=== PATIENT | female | born 1990 | race Asian ===

== ENCOUNTER 2022-08-03 10:00 | Emergency (ER) | payer OTHER ==
[2022-08-03 10:43] LABS: BASOPHILS % (AUTO) 0.3 %; EOSINOPHILS % (AUTO) 0.1 %; HCT - HEMATOCRIT 41.3 % (37.0-47.0); HGB - HEMOGLOBIN 13.1 g/dL (12.0-16.0); LYMPHOCYTES # (AUTO) 0.6 10^3/uL (1.5-3.5); LYMPHOCYTES % (AUTO) 6.4 %; MEAN CORPUSCULAR HEMOGLOBIN 28.1 pg (27.0-31.0); MEAN CORPUSCULAR HGB CONC 31.7 g/dL (32.0-36.0); MEAN CORPUSCULAR VOLUME 88.6 fL (81.0-99.0); MEAN PLATELET VOLUME 8.7 fL (7.9-10.8); MONOCYTES # (AUTO) 0.2 10^3/uL (0.0-1.0); MONOCYTES % (AUTO) 2.2 %; NEUTROPHILS # (AUTO) 8.2 10^3/uL (1.5-6.6); NEUTROPHILS % (AUTO) 90.7 %; PLT - PLATELET COUNT 291 10^3/uL (130-450); RED BLOOD COUNT 4.66 10^6/uL (4.20-5.40)
--- NOTE | 2022-08-03 10:44 | ED Physician Documentation ---
PD HPI CHEST PAIN - Stated complaint Stated Complaint: CHEST/BACK PAIN - Chief complaint Chief Complaint: Cardiac - History obtained from History obtained from: Patient - Additional information Additional information: 31-year-old woman with history of lupus on mycophenolate and hydroxychloroquine and related to lupus she has pulmonary hypertension on tadalafil and Ambrisentan and spironolactone. She was awoken this morning at 2 AM by sharp pain that is substernal and radiating to the upper back. It is worse with deep breathing. She noticed some mild facial puffiness yesterday not associated with pedal edema. She is short of breath since yesterday. She denies calf pain or history of DVT/PE. Review of Systems Ten Systems: 10 systems reviewed and negative Constitutional: denies: Fever, Chills, Fatigue Cardiac: denies: Palpitations, Pedal edema, Calf pain Respiratory: denies: Cough, Hemoptysis, Wheezing PD PAST MEDICAL HISTORY - Present Medications Home Medications: Ambulatory Orders Medication Instructions Recorded Confirmed Spironolactone [Aldactone] 12.5 mg PO DAILY 08/03/22 08/03/22 Tadalafil [Cialis] 40 mg PO DAILY 08/03/22 08/03/22 mycophenolate mofetiL [Cellcept] 500 mg PO BID 08/03/22 08/03/22 - Allergies Allergies/Adverse Reactions: Allergies Allergy/AdvReac Type Severity Reaction Status Date / Time acetaminophen [From Vicodin] Allergy Rash Verified 08/03/22 10:21 hydrocodone [From Vicodin] Allergy Rash Verified 08/03/22 10:21 PD ED PE NORMAL - Vitals Vital signs reviewed: Yes - General General: Alert and oriented X 3, No acute distress - HEENT HEENT: PERRL, EOMI, Other (No overt facial puffiness but the patient notices it. No JVD.) - Neck Neck: Supple, no meningeal sign, No bony TTP - Cardiac Cardiac: RRR, No murmur - Respiratory Respiratory: No respiratory distress, Clear bilaterally - Abdomen Abdomen: Soft, Non tender - Back Back: No CVA TTP, No spinal TTP - Derm Derm: Normal color, Warm and dry - Extremities Extremities: No edema, No calf tenderness / cord - Neuro Neuro: Alert and oriented X 3, Normal speech Results - Vitals Vitals: Vital Signs - 24 hr 08/03/22 08/03/22 08/03/22 10:16 11:21 11:33 Temperature 37.3 C Heart Rate 98 79 77 Respiratory 20 14 19 Rate Blood Pressure 121/81 H 118/77 O2 Saturation 98 98 100 08/03/22 08/03/22 08/03/22 12:00 12:30 13:30 Temperature Heart Rate 80 80 81 Respiratory 18 22 16 Rate Blood Pressure 114/80 117/9 L 117/79 O2 Saturation 98 98 99 Oxygen O2 Source Room air - EKG (time done) 1028 Rate: Rate (enter#) (72) Rhythm: NSR [place]: Normal Intervals: Normal [place] QRS: Normal Ischemia: Normal ST segments - Labs Labs: Laboratory Tests 08/03/22 08/03/22 08/03/22 10:33 10:33 10:33 WBC 9.0 RBC 4.66 Hgb 13.1 Hct 41.3 MCV 88.6 MCH 28.1 MCHC 31.7 L RDW 12.0 Plt Count 291 MPV 8.7 Neut # (Auto) 8.2 H Lymph # (Auto) 0.6 L [place] # (Auto) 0.2 Eos # (Auto) 0.0 Baso # (Auto) 0.0 Absolute Nucleated RBC 0.00 Nucleated RBC % 0.0 Sodium 137 Potassium 3.6 Chloride 101 Carbon Dioxide 27 Anion Gap 9.0 BUN 8 Creatinine 0.7 Estimated GFR (MDRD) 97 Glucose 108 H Calcium 9.5 Total Bilirubin 0.4 AST 18 ALT 10 Alkaline Phosphatase 46 Troponin I High Sens < 2.3 L B-Natriuretic Peptide Total Protein 8.4 H Albumin 4.6 Globulin 3.8 Albumin/Globulin Ratio 1.2 Lipase 33 Urine HCG, Qual 08/03/22 08/03/22 10:33 11:25 WBC RBC Hgb Hct MCV MCH MCHC RDW Plt Count MPV Neut # (Auto) Lymph # (Auto) [place] # (Auto) Eos # (Auto) Baso # (Auto) Absolute Nucleated RBC Nucleated RBC % Sodium Potassium Chloride Carbon Dioxide Anion Gap BUN Creatinine Estimated GFR (MDRD) Glucose Calcium Total Bilirubin AST ALT Alkaline Phosphatase Troponin I High Sens B-Natriuretic Peptide 6 Total Protein Albumin Globulin Albumin/Globulin Ratio Lipase Urine HCG, Qual NEGATIVE PD MEDICAL DECISION MAKING - ED course ED course: 31-year-old woman with pleuritic chest pain, no evidence of ACS, given her lupus and higher than average risk for thromboembolic disease CT PA was done with negative findings. By process of lamination this is consistent with pleurisy. Departure - Departure Disposition: 01 Home, Self Care Clinical Impression: Pleurisy Condition: Good Record reviewed to determine appropriate education?: Yes Instructions: ED Chest Pain Atypical Unkn Cause Comments: Thankfully there are no findings of active heart disease, blood clots, or congestive heart failure. By process of elimination the pain is most consistent with what is known as pleurisy for which you can take ibuprofen per package instructions. Return for new or worsening symptoms and follow-up with your primary physician, next available appointment. Discharge Date/Time: 08/03/22 13:39
[2022-08-03] MEDS ORDERED: iohexoL-300 100 ML VIAL ONE (10:55)
[2022-08-03 10:57] LABS: ALBUMIN 4.6 g/dL (3.2-5.5); ALBUMIN/GLOBULIN RATIO 1.2 (1.0-2.2); BILIRUBIN,TOTAL 0.4 mg/dL (0.2-1.0); CALCIUM 9.5 mg/dL (8.5-10.3); CREATININE 0.7 mg/dL (0.4-1.0); POTASSIUM 3.6 mmol/L (3.5-5.0); TOTAL PROTEIN 8.4 g/dL (6.7-8.2)
--- NOTE | 2022-08-03 11:14 | XRAY Report ---
PROCEDURE: Chest 1 View X-Ray INDICATIONS: Chest Pain TECHNIQUE: One view of the chest was acquired. COMPARISON: 04/26/2022 FINDINGS: Surgical changes and devices: Cholecystectomy clips are seen. Lungs and pleura: No pleural effusions or pneumothorax. Lungs are clear. Mediastinum: Mediastinal contours appear normal. Heart size is normal. Bones and chest wall: No suspicious bony lesions. Overlying soft tissues appear unremarkable. IMPRESSION: No acute cardiopulmonary process is seen. Reviewed by: Mark Martinez MD on 08/03/2022 10:12 AM [facility] Approved by: Mark Martinez MD on 08/03/2022 10:12 AM [facility] Station ID: [id number]
[2022-08-03 12:03] LABS: HCG UR QUAL NEGATIVE
[2022-08-03] MEDS ORDERED: iohexoL-300 100 ML VIAL IVP ONE (12:51)
--- NOTE | 2022-08-03 13:09 | CT Report ---
PROCEDURE: ANGIO CHEST W/WO INDICATIONS: chest - >back pain CONTRAST: 80ml omni 300 TECHNIQUE: After the administration of intravenous contrast, 2 mm axial images were acquired from the pulmonary apices to the posterior costophrenic angles during the arterial phase. In addition, 1 mm lung kernel and 5 mm soft tissue kernel reconstructions were performed. 3-dimensional coronal oblique maximum int ensity projection (MIP) reformats, 8 mm axial MIP, and 5 mm coronal and sagittal MPR reformats were t hen performed through the thorax. For radiation dose reduction, the following was used: automated exp osure control, adjustment of mA and/or kV according to patient size. COMPARISON: Correlation is made with the chest radiograph 09/02/2022. Prior chest CT, 04/25/2022 FINDINGS: Image quality: Excellent. Pulmonary arteries: Pulmonary arteries are normal in size, and demonstrate no intraluminal filling d efects to suggest central pulmonary embolism. Lungs and pleura: Lungs are clear. No pleural effusions or pneumothorax. Central and peripheral ai rways are patent. Mediastinum: Heart size is normal, without pericardial effusion. No mediastinal or hilar adenopathy . Thoracic aorta is normal in caliber and enhancement. Esophagus is normal in caliber.There is a sm all hiatal hernia. Bones and chest wall: No suspicious bony lesions. Ribs and thoracic spine appear intact throughout. No axillary or supraclavicular adenopathy. The thyroid is normal in size and there are no incident al findings. Abdomen: Cholecystectomy clips are seen. Visualized upper abdominal solid organs appear normal in the early arterial phase of enhancement. IMPRESSION: Negative for pulmonary embolism. Incidental note is made of: Small hiatal hernia Cholecystectomy clips Reviewed by: Mark Martinez MD on 08/03/2022 12:08 PM [facility] Approved by: Mark Martinez MD on 08/03/2022 12:08 PM [facility] Station ID: [id number]
[2022-08-03 13:39] VITALS: BP 117/79
== END 2022-08-03 13:39 | disposition home or self-care (01) ==
LOC: ED 10:00
DX: R09.1 Pleurisy (principal); M32.9 Systemic lupus erythematosus, unspecified; I27.20 Pulmonary hypertension, unspecified
CPT/HCPCS: 36415; 71045; 71275; 80053; 81025; 83690; 83880; 84484; 85025; 93005; 99284; Q9967

== ENCOUNTER 2023-08-06 13:43 | Emergency (ER) | payer OTHER ==
[2023-08-06 14:30] VITALS: O2SAT 100
[2023-08-06 14:31] LABS: BASOPHILS % (AUTO) 0.9 %; EOSINOPHILS # (AUTO) 0.1 10^3/uL (0.0-0.7); EOSINOPHILS % (AUTO) 1.4 %; HCT - HEMATOCRIT 41.8 % (37.0-47.0); HGB - HEMOGLOBIN 13.1 g/dL (12.0-16.0); LYMPHOCYTES # (AUTO) 1.5 10^3/uL (1.5-3.5); LYMPHOCYTES % (AUTO) 34.3 %; MEAN CORPUSCULAR HEMOGLOBIN 28.6 pg (27.0-31.0); MEAN CORPUSCULAR HGB CONC 31.3 g/dL (32.0-36.0); MEAN CORPUSCULAR VOLUME 91.3 fL (81.0-99.0); MEAN PLATELET VOLUME 8.5 fL (7.9-10.8); MONOCYTES # (AUTO) 0.4 10^3/uL (0.0-1.0); MONOCYTES % (AUTO) 9.6 %; NEUTROPHILS # (AUTO) 2.3 10^3/uL (1.5-6.6); NEUTROPHILS % (AUTO) 53.6 %; PLT - PLATELET COUNT 315 10^3/uL (130-450); RED BLOOD COUNT 4.58 10^6/uL (4.20-5.40); RED CELL DISTRIBUTION WIDTH 12.6 % (12.0-15.0); WHITE BLOOD COUNT 4.4 x10^3/uL (4.8-10.8)
[2023-08-06 14:47] LABS: ALBUMIN 4.8 g/dL (3.2-5.5); ALBUMIN/GLOBULIN RATIO 1.7 (1.0-2.2); BILIRUBIN,TOTAL 0.3 mg/dL (0.2-1.0); CALCIUM 9.5 mg/dL (8.5-10.3); CREATININE 0.7 mg/dL (0.6-1.3); TOTAL PROTEIN 7.7 g/dL (6.4-8.9)
--- NOTE | 2023-08-06 17:26 | ED Physician Documentation ---
History of Present Illness - Stated complaint Stated Complaint: ABD PX - Chief complaint Chief Complaint: Abd Pain - Additonal information Additional information: 32-year-old female who has a past medical history most significant for lupus and pulmonary hypertension presents for 2 weeks of left lower quadrant abdominal pain. She reports it as constant in nature. The first few days she was constipated but after that she began pooping regularly. No melena hematochezia. She does have a history of an ectopic and required adnexal removal though she is unsure which laterality. Over the last 2 weeks she denies fevers, nausea, vomiting. No dysuria urgency or frequency. Denies has an IUD in place Review of Systems Constitutional: denies: Fever, Chills Throat: reports: Reviewed and negative Cardiac: reports: Reviewed and negative Respiratory: reports: Reviewed and negative GI: reports: Abdominal Pain. denies: Nausea, Vomiting, Constipation, Diarrhea, Bloody / black stool : reports: Reviewed and negative Skin: reports: Reviewed and negative PD PAST MEDICAL HISTORY - Past Medical History Past Medical History: Yes Cardiovascular: Other - Past Surgical History Past Surgical History: No - Present Medications Home Medications: Ambulatory Orders Medication Instructions Recorded Confirmed Spironolactone [Aldactone] 12.5 mg PO DAILY 08/03/22 08/03/22 Tadalafil [Cialis] 40 mg PO DAILY 08/03/22 08/03/22 mycophenolate mofetiL [Cellcept] 500 mg PO BID 08/03/22 08/03/22 Ambrisentan 10 mg PO 08/06/23 08/06/23 Hydroxychloroquine [Plaquenil] 200 mg PO DAILY 08/06/23 08/06/23 - Allergies Allergies/Adverse Reactions: Allergies Allergy/AdvReac Type Severity Reaction Status Date / Time acetaminophen [From Vicodin] Allergy Rash Verified 08/06/23 14:07 hydrocodone [From Vicodin] Allergy Rash Verified 08/06/23 14:07 - Social History Does the pt smoke?: No Smoking Status: Never smoker Does the pt drink ETOH?: No Does the pt have substance abuse?: No - Immunizations Immunizations are current?: Yes - POLST Patient has POLST: No PD ED PE NORMAL - General General: Alert and oriented X 3, No acute distress, Well developed/nourished - HEENT HEENT: Atraumatic - Neck Neck: Supple, no meningeal sign - Cardiac Cardiac: RRR, No murmur - Respiratory Respiratory: No respiratory distress, Clear bilaterally - Abdomen Abdomen: Normal bowel sounds, Soft - Derm Derm: Normal color, Warm and dry - Extremities Extremities: No deformity - Neuro Neuro: Alert and oriented X 3, portfolio administrator 2-12 intact Eye Opening: Spontaneous Motor: Obeys Commands Verbal: Oriented GCS Score: 15 Results - Vitals Vitals: Vital Signs - 24 hr 08/06/23 08/06/23 14:07 17:58 Temperature 36.8 C 36.9 C Heart Rate 70 57 L Respiratory 16 16 Rate Blood Pressure 108/64 97/67 O2 Saturation 100 100 Oxygen O2 Source Room air - Labs Labs: Laboratory Tests 08/06/23 08/06/23 08/06/23 14:26 14:26 17:25 WBC 4.4 L RBC 4.58 Hgb 13.1 Hct 41.8 MCV 91.3 MCH 28.6 MCHC 31.3 L RDW 12.6 Plt Count 315 MPV 8.5 Neut # (Auto) 2.3 Lymph # (Auto) 1.5 [place] # (Auto) 0.4 Eos # (Auto) 0.1 Baso # (Auto) 0.0 Absolute Nucleated RBC 0.00 Nucleated RBC % 0.0 Sodium 138 Potassium 4.0 Chloride 106 Carbon Dioxide 29 Anion Gap 3.0 L BUN 9 Creatinine 0.7 Estimated GFR (MDRD) 96 Glucose 76 Calcium 9.5 Total Bilirubin 0.3 AST 14 ALT 9 L Alkaline Phosphatase 37 L Total Protein 7.7 Albumin 4.8 Globulin 2.9 Albumin/Globulin Ratio 1.7 Lipase 26 Urine Color YELLOW Urine Clarity CLEAR Urine pH 6.0 Ur Specific [place] 1.020 Urine Protein NEGATIVE Urine Glucose (UA) NEGATIVE Urine Ketones NEGATIVE Urine Occult Blood NEGATIVE Urine Nitrite NEGATIVE Urine Bilirubin NEGATIVE Urine Urobilinogen 0.2 (NORMAL) Ur Leukocyte Esterase NEGATIVE Ur Microscopic Review NOT INDICATED Urine Culture Comments NOT INDICATED Urine HCG, Qual 08/06/23 17:25 WBC RBC Hgb Hct MCV MCH MCHC RDW Plt Count MPV Neut # (Auto) Lymph # (Auto) [place] # (Auto) Eos # (Auto) Baso # (Auto) Absolute Nucleated RBC Nucleated RBC % Sodium Potassium Chloride Carbon Dioxide Anion Gap BUN Creatinine Estimated GFR (MDRD) Glucose Calcium Total Bilirubin AST ALT Alkaline Phosphatase Total Protein Albumin Globulin Albumin/Globulin Ratio Lipase Urine Color Urine Clarity Urine pH Ur Specific [place] Urine Protein Urine Glucose (UA) Urine Ketones Urine Occult Blood Urine Nitrite Urine Bilirubin Urine Urobilinogen Ur Leukocyte Esterase Ur Microscopic Review Urine Culture Comments Urine HCG, Qual NEGATIVE - Rads (name of study) abd xr Relevant Findings:: Final report received (No acute abdominal pathology. Moderate amount of stool in colon) pelvic US Relevant Findings:: Other (Per senior medical technologist simple appearing left ovarian cyst measuring 2 cm) PD Medical Decision Making - ED course Complexity details: reviewed results, re-evaluated patient, d/w patient ED course: 32-year-old female was referred to the emergency department from local walk-in clinic for evaluation of 2 weeks persistent left lower quadrant abdominal pain. She denies fevers, nausea or vomiting. She did initially have some constipation but reports normal bowel movements since then. She does have a past medical history most significant for pulmonary hypertension and lupus. On Plaquenil, mycophenolate and Viagra. Here in the emergency department CBC and chemistry showed mild leukopenia with a white count of 4.4. Normal hemoglobin. Her electrolytes were without acute worrisome abnormalities. Urinalysis was negative. Because the patient had reported that when the pain began several weeks ago she was initially constipated I did order a flatplate KUB x-ray which showed a moderate amount of stool in the colon. Subsequently a pelvic ultrasound showed a simple appearing 2 cm left ovarian cyst. On abdominal exam she had mild tenderness elicited without guarding or rebound. I discussed with patient that other etiologies of the abdominal pain could include ureter or renal stones, diverticulitis. I did offer a CT scan here in the ER but at this time the patient prefers to be discharged home. She is going to try some MiraLAX for constipation and Tylenol Motrin for analgesia. If not markedly improving then should return to the ER for repeat evaluation and at that time a CT to be contemplated. Usual emergent return precautions were discussed. Departure - Departure Disposition: Home, Self Care Clinical Impression: Left ovarian cyst Constipation Qualifiers: Constipation type: unspecified constipation type Qualified Code(s): K59.00 - Constipation, unspecified Condition: Stable Record reviewed to determine appropriate education?: Yes Instructions: ED Constipation, ED Cyst Ovarian Comments: Aica You were seen today in the emergency department because for 2 weeks you have been having some left lower pelvic and abdominal pain. The x-ray completed of your abdomen shows a moderate amount of stool within your colon. This indicates that your constipated. I would take MiraLAX, 1 or 2 glass fulls a day until you have 3 or 4 watery bowel movements. The ultrasound shows a simple appearing 2 cm left ovarian cyst. These are typically benign in nature and will resolve on their own. I recommend for pain that you take Tylenol 500 mg 2-3 times a day or alternate with ibuprofen 600 mg 2-3 times a day. If you find that unburden in your abdomen of stool and taking these simple pain medicines does not improve your symptoms, or you develop fevers, have black or bloody stools, uncontrolled vom iting then you should return immediately to the ER. Forms: PCP List
[2023-08-06 17:44] LABS: BILIRUBIN,URINE NEGATIVE (NEGATIVE); GLUCOSE, URINE (UA) NEGATIVE (NEGATIVE); KETONES,URINE (UA) NEGATIVE (NEGATIVE); LEUKOCYTE ESTERASE, URINE NEGATIVE (NEGATIVE); NITRITE,URINE NEGATIVE (NEGATIVE); OCCULT BLOOD,URINE NEGATIVE (NEGATIVE); PROTEIN,URINE NEGATIVE (NEGATIVE); UROBILINOGEN,URINE 0.2 (NORMAL) E.U./dL (NORMAL)
[2023-08-06 17:46] LABS: CLARITY,URINE CLEAR (CLEAR)
[2023-08-06 17:47] LABS: HCG UR QUAL NEGATIVE
--- NOTE | 2023-08-06 18:42 | XRAY Report ---
PROCEDURE: Abdomen 1 View X-Ray INDICATIONS: LLQ pain; ? stool TECHNIQUE: One view of the abdomen acquired. COMPARISON: None. FINDINGS: Surgical changes and devices: Cholecystectomy. IUD in pelvis. Bowel: Bowel gas pattern is normal. Moderate amount of stool in colon. Soft tissues: No suspicious abdominal calcifications. Visualized solid organ contours appear normal in size. Bones: No suspicious bony lesions. IMPRESSION: 1. No acute abdominal pathology. 2. Moderate amount of stool in colon. Reviewed by: Dejan Irizarry MD on 08/06/2023 6:41 PM PST Approved by: Dejan Irizarry MD on 08/06/2023 6:41 PM PST Station ID: [id number]
[2023-08-06 19:51] VITALS: BP 98/68
--- NOTE | 2023-08-06 20:38 | Ultrasound Report ---
PROCEDURE: Pelvic w/Doppler Complete INDICATIONS: 2 weeks LLQ pelvic Pain; hx hx of adnexal removal COMPARISON: None. TECHNIQUE: Real-time scanning was performed of the pelvic organs, with image documentation. Additional endovagi nal scanning was necessary due to incomplete visualization of the adnexal and endometrial structures by transabdominal scanning. COMPARISON: None. FINDINGS: No pathologic free abdominal or pelvic fluid. Uterus: Uterus is anteverted and normal in size at 6.3 x 3.1 x 5.0 cm. The endometrium measures 4.3 mm in combined thickness. There is an IUD in uterus. Ovaries: Right ovary measures 2.3 x 1.5 x 2.9 cm with a history volume of 4.1 cc. Left ovary measure s 3.2 x 1.9 x 1.6 cm with an estimated volume of 5.0 cc. There is a 2 cm mildly thick-walled cyst in right ovary. IMPRESSION: 1. There is an IUD in uterus 2. No acute abnormality in pelvis. 3. A 2 cm dominant mildly thick walled cyst in the left ovary. Consider ultrasound follow-up. Reviewed by: Dejan Irizarry MD on 08/06/2023 8:37 PM PST Approved by: Dejan Irizarry MD on 08/06/2023 8:37 PM PST Station ID: [id number]
== END 2023-08-06 19:49 | disposition home or self-care (01) ==
LOC: ED 13:43
DX: N83.202 Unspecified ovarian cyst, left side (principal); K59.00 Constipation, unspecified; Z79.899 Other long term (current) drug therapy
CPT/HCPCS: 36415; 80053; 81001; 81003; 81025; 83690; 85025; 87086; 93975; 99283; 99284